=== PATIENT | male | born 1975 | race Two or more races ===

== ENCOUNTER 2024-04-21 01:47 | Emergency (ER) | payer OTHER ==
[~2024-04-21] VITALS: Ht 188 cm; Wt 108.9 kg
[2024-04-21] MEDS ORDERED: CLINDAMYCIN PHOSPHATE 150 MG/ML (600mg) IM STA (06:14)
== END 2024-04-21 06:43 | disposition home or self-care (01) ==
LOC: ER 01:48
DX: H00.011 Hordeolum externum right upper eyelid (principal); Z88.0 Allergy status to penicillin